=== PATIENT | female | born 1950 | race Caucasian/White ===

== ENCOUNTER 2020-11-13 22:19 | Inpatient (IN) ==
--- OUTSIDE RECORDS SUMMARY | 2020-11-13 22:23 | External Medical Summary | Continuity of Care Document ---
:1950 Author Name Nuris Clinton, Provider Address Unavailable Unavailable , Care Team Providers Name Role Phone Unavailable Unavailable Unavailable MANOLO HURST Unavailable Unavailable Unavailable Unavailable Unavailable Problems Arthritis (716.90) (M19.90) Hypertension (401.9) (I10) Leiomyoma of uterus (218.9) (D25.9) Hot flashes (782.62) (R23.2) Encounter for routine gynecological examination (V72.31) (Z0 1.419) Cyst of ovary (620.2) (N83.209) Allergies and Adverse Reactions Compazine TABS (Allergy) Reaction: Swell ing, Anaphylaxis, Difficulty Swallowing hydroCHLOROthiazide CAPS (Allergy) Reglan TABS (Allergy) Reaction: Tachycar sharath, Dizziness Medications Lisinopril TABS , M.D. Refills: 0 Fish Oil OIL , M.D. Refills: 0 Vitamin D CAPS , M.D. Refills: 0 CoQ-10 CAPS , M.D. Refills: 0 Vitamin E TABS , M.D. Refills: 0 Aspirin 81 MG TABS , M.D. Refills: 0 Simvastatin 20 MG Oral Tablet , M.D. Refills: 0 Turmeric Curcumin CAPS , M.D. Refills: 0 Metoprolol Tartrate TABS , M.D. Refills: 0 Biotin CAPS , M.D. Refills: 0 clonazePAM TABS , M.D. Refills: 0 Procedures History of Dilation And Curettage Status : Completed History of Tubal Ligation Status: Comple ana lilia History of Tonsillectomy With Adenoidectomy Status: Completed History of Oral Surgery Tooth Extraction Status: Completed History of Complete Colonoscopy Status: Completed History of Cholecystectomy Laparoscopic Status: Completed History of paraesophageal hiatal hernia repair Status: Completed Immunizations Immunizations not documented Family History Father Family history of myocardial infarction (V17.3) (Z82.49) Sta tus: Active Family history of (799.9) (R99) Status: Active Mother Family history of Leiomyoma (215.9) (D21.9) Status: Active Grandfather Family history of Colon cancer (153.9) (C18.9) Status: Activ e Social History - Smoking Status Never smoked tobacco Plan of Treatment Planned Observations Planned Goals not documented Results No Known Results Results not documented Encounters Appointment; Ivet Heaton M.D. 09-Jan-2019 13:45 Encounter Diagnosis: Problem not documented
--- OUTSIDE RECORDS SUMMARY | 2020-11-13 22:23 | External Medical Summary | Continuity of Care Document ---
:1950 Author Name Nuris Clinton, Provider Address Unavailable Unavailable , Care Team Providers Name Role Phone Unavailable Unavailable Unavailable MANOLO HURST Unavailable Unavailable Unavailable Unavailable Unavailable Problems Cyst of ovary (620.2) (N83.209) Encounter for routine gynecological examination (V72.31) (Z0 1.419) Hot flashes (782.62) (R23.2) Leiomyoma of uterus (218.9) (D25.9) Hypertension (401.9) (I10) Arthritis (716.90) (M19.90) Allergies and Adverse Reactions Compazine TABS (Allergy) Reaction: Swell ing, Anaphylaxis, Difficulty Swallowing hydroCHLOROthiazide CAPS (Allergy) Reglan TABS (Allergy) Reaction: Tachycar sharath, Dizziness Medications Lisinopril TABS , M.D. Refills: 0 Fish Oil OIL , M.D. Refills: 0 Vitamin D CAPS , M.D. Refills: 0 clonazePAM TABS , M.D. Refills: 0 Biotin CAPS , M.D. Refills: 0 Metoprolol Tartrate TABS , M.D. Refills: 0 Turmeric Curcumin CAPS , M.D. Refills: 0 Aspirin 81 MG TABS , M.D. Refills: 0 Vitamin E TABS , M.D. Refills: 0 Simvastatin 20 MG Oral Tablet , M.D. Refills: 0 CoQ-10 CAPS , M.D. Refills: 0 Procedures History of [...]
[2020-11-13] MEDS ORDERED: ACETAMINOPHEN 1,000 MG/100 ML VIAL IV STA (22:47)
[2020-11-13] MEDS ORDERED: SODIUM CHLORIDE 0.9% 1000ML 1,000 ML IV SCH (23:00)
--- NOTE | 2020-11-13 23:04 | Emergency Department Note ---
History of Present Illness General Chief complaint: Abnormal Labs/Diagnostic Testing Stated complaint: abnormal lab work Time Seen by Provider: 11/13/20 22:32 History of Present Illness This is a 70-year-old female presenting to the emergency department for evaluation of abnormal outpatient labs at the [facility] today. The patient had a routine follow-up with her primary care physician this afternoon, Dr. Gray. She has been feeling unwell for the past few months. She has had intermittent bronchitis-like symptoms and has been using her 's albuterol inhaler at night with some improvement of symptoms. The patient did have the initial Moderna COVID-19 vaccine about 2 weeks ago. A day or 2 after that she did develop a fever and went to an urgent care clinic where she was started on 10 days of Augmentin. She just completed the antibiotic course without significant improvement of symptoms. She does report some fatigue but no headache, neck pain, chest pain, chest tightness, shortness of breath, or abdominal pain otherwise. The patient is usually fairly healthy with hypertension, dyslipidemia, and history of SVT. Because of her fatigue outpatient labs were gathered, and the patient was contacted [facility] with critical labs. She does have an outpatient white blood cell count of greater than 92,000 with 86% blasts. She is not having significant pain at this time and rates her current discomfort a 1/10. Home Medications Medication Instructions Recorded Confirmed Type aspirin 81 mg PO DAILY 11/13/20 11/13/20 History calcium carbonate [Calcium 500] 500 mg PO BID 11/13/20 11/13/20 History cholecalciferol (vitamin D3) 50 mcg PO DAILY 11/13/20 11/13/20 History [Vitamin D3] coenzyme Q10 [CoQ-10] 100 mg PO DAILY 11/13/20 11/13/20 History diclofenac sodium [Voltaren] 2 g TOPICAL DIRECTED PRN 11/13/20 11/13/20 History doxycycline hyclate 100 mg PO BID 11/13/20 11/13/20 History fluticasone propion-salmeterol 1 inh INHALATION BID 11/13/20 11/13/20 History [Wixela Inhub] levalbuterol tartrate 1 puff INHALATION DIRECTED PRN 11/13/20 11/13/20 History lisinopril 20 mg PO BID 11/13/20 11/13/20 History metoprolol succinate 12.5 mg PO DAILY 11/13/20 11/13/20 History metronidazole 1 applic TOPICAL DIRECTED PRN 11/13/20 11/13/20 History omega-3 fatty acids-fish oil 1 cap PO BID 11/13/20 11/13/20 History [[place] 3 Fish Oil] simvastatin 20 mg PO QDD 11/13/20 11/13/20 History valacyclovir 1,000 mg PO BID 11/13/20 11/13/20 History zinc 50 mg PO DAILY 11/13/20 11/13/20 History Allergies Allergy/AdvReac Type Severity Reaction Status Date / Time prochlorperazine Allergy Severe MOUTH & Verified 11/13/20 23:01 [From Compazine] THROAT FEEL LIKE SWOLLEN hydrochlorothiazide Allergy Unknown TOLD BY MD Verified 11/13/20 23:01 NOT TO TAKE metoclopramide [From Reglan] AdvReac Intermediate INCREASES Verified 11/13/20 23:01 HEART RATE Past Med/Surg History Medical History (Updated 11/14/20 @ 05:52 by Travis Reed PA-C) Dyslipidemia Family history of heart attack Father at age 56. Father used Tobacco and ETOH. Family history of stroke Hypertension Paroxysmal SVT (supraventricular tachycardia) Postgastric surgery syndrome Reactive airway disease Surgical History (Updated 11/13/20 @ 23:10 by Travis Reed PA-C) Hx of cholecystectomy Hx of tonsillectomy S/P repair of paraesophageal hernia Social History Smoking Status: Never smoker Do You Dip or Chew Tobacco: No; Hx Alcohol Use: No Preferred Language: Algerian Communication Ability: Effective Cage/Vault Supervisor Required: No Beliefs That Will Affect Care: None Current Living Situation: Family Other Information That Helps Us Care for You: No Feels Safe at Home: Yes Safety Concerns: Feels Safe At This Time Assistive Devices: Contacts Review of Systems A total of 10 systems reviewed and were otherwise negative Physical Exam Vital Signs Vital Signs - 24 hr 11/13/20 22:28 11/13/20 23:10 11/13/20 23:12 Temperature 37.9 C H Temperature Source Temporal Artery Scan Pulse Rate 101 H Pulse Rate [Right Finger] 96 H Pulse Rate from SpO2 Sensor Respiratory Rate 16 26 H Respiratory Effort / Characteristics Non-Labored Spontaneous Non-Labored Spontaneous Respiratory Depth Normal Normal Respiratory Pattern Regular Regular Blood Pressure 178/94 H Blood Pressure [Right Arm] 155/81 H Blood Pressure Mean 122 Blood Pressure Mean [Right Arm] 105 Blood Pressure Position Sitting Blood Pressure Position [Right Arm] Lying Pulse Oximetry 98 96 96 Oxygen Delivery Method Room Air Room Air Room Air Sepsis Recent Fever Within 48 Hours Yes Sepsis New/Unexplained Change in Mental Status No Sepsis Action Taken by Nursing No Action Required 11/13/20 23:30 11/14/20 00:00 11/14/20 00:05 Temperature 37.2 C Temperature Source Oral Pulse Rate 94 H 95 H Pulse Rate [Right Finger] Pulse Rate from SpO2 Sensor 94 H 94 H Respiratory Rate 20 21 Respiratory Effort / Characteristics Respiratory Depth Respiratory Pattern Blood Pressure 151/74 H 139/80 Blood Pressure [Right Arm] Blood Pressure Mean 99 99 Blood Pressure Mean [Right Arm] Blood Pressure Position Blood Pressure Position [Right Arm] Pulse Oximetry 97 98 Oxygen Delivery Method Room Air Room Air Sepsis Recent Fever Within 48 Hours Sepsis New/Unexplained Change in Mental Status Sepsis Action Taken by Nursing VITALS: Vitals are noted on the nurse's note and reviewed by myself. Vital signs with low-grade fever and slight tachycardia. GENERAL: Well-developed, well-nourished, white female, who is in no acute distress and resting comfortably. Patient is cooperative with the examination. HEAD: Normocephalic atraumatic. NECK: Supple without nuchal rigidity. No lymphadenopathy. No thyromegaly. Cervical spine is nontender. HEART: Regular rate and rhythm without murmurs gallops or rubs. LUNGS: Clear to auscultation bilaterally without wheezes, rales or rhonchi. No retractions or accessory muscle use. ABDOMEN: Positive normal bowel sounds x 4. Soft, nontender, without masses or organomegaly. No guarding or rebound tenderness. MUSCULOSKELETAL: No muscle atrophy, erythema, or edema noted. Full range of motion in all extremities NEURO: Patient was alert and oriented to person place and time. CN II through XII grossly intact. Course Administered Medications Ceftriaxone Sodium 2,000 mg/ (Dextrose) 70 mls @ 100 mls/hr IV Q24H [facility]; Protocol Stop: 11/21/20 03:59 Last Infusion: 11/14/20 04:53 Dose: 0 mls/hr Documented by: [id number] Admin: 11/14/20 03:55 Dose: 100 mls/hr Documented by: [id number] Sodium Chloride (Nss 1000ml) 1,000 mls @ 80 mls/hr IV .[id number] MEET Stop: 12/14/20 03:00 Last Admin: 11/14/20 03:00 Dose: 80 mls/hr Documented by: [id number] Discontinued Medications Sodium Chloride (Nss 1000ml) 1,000 mls @ 999 mls/hr IV .[id number] MEET Stop: 11/14/20 00:00 Last Infusion: 11/14/20 00:42 Dose: 0 mls/hr Documented by: [id number] Admin: 11/13/20 23:13 Dose: 999 mls/hr Documented by: [id number] Acetaminophen (Ofirmev) 1,000 mg in 100 mls @ 400 mls/hr IV NOW STA Stop: 11/13/20 23:01 Last Infusion: 11/13/20 23:30 Dose: 0 mls/hr Documented by: [id number] Admin: 11/13/20 23:14 Dose: 400 mls/hr Documented by: [id number] Medical Decision Making Differential Diagnosis Differential includes Cancer, acute coronary syndrome, myocardial infarction, CVA, TIA, anemia, infection, pneumonia, UTI, pyelonephritis, poor nutrition, dehydration, electrolyte disturbance,hypoglycemia. Laboratory Data Result diagrams: 11/13/20 23:15 11/13/20 23:15 Lab Results 11/13/20 11/13/20 11/13/20 Range/Units 23:10 23:10 23:15 WBC 94.12 H* (4.8-10.8) K/uL RBC 3.20 L (4.2-5.4) M/uL Hgb 10.5 L (12.0-16.0) g/dL Hct 31.3 L (37-47) % MCV 97.8 (80-100) fL MCH 32.8 (25-34) pg MCHC 33.5 (32-36) g/dL RDW Std Deviation 57.2 H (36.4-46.3) fL RDW Coeff of Isabel 16.4 H (11.5-14.5) % Plt Count 34 L (130-400) K/uL MPV 9.9 (7.4-10.4) fL Reticulocyte % (Auto) 1.2 (0.5-2.0) % Reticulocyte # 0.04 (0.02-0.10) 10^6/uL Absolute Nucleated RBC 0.12 H (0-0) K/uL Nucleated RBC % (auto) 0.1 % Neutrophils % (Manual) 0.0 % Lymphocytes % (Manual) 2.4 % Monocytes % (Manual) 0.8 % Blast Cells % (Manual) 96.8 % Neutrophils # (Manual) 0.00 L (1.4-6.5) K/uL Total Absolute Neuts 0.00 L* (1.4-6.5) K/uL Lymphocytes # (Manual) 2.26 (1.2-3.4) K/uL Total Abs Lymphocytes 2.26 (1.2-3.4) K/uL Monocytes # (Manual) 0.75 H (0.11-0.59) K/uL Blast Cells # (Man) 91.11 H (0-0) K/uL RBC Morphology Unremarkable ESR (0-21) mm/hr PT (9.0-12.0) Seconds INR (0.9-1.1) APTT (21.0-31.0) Seconds PTT Ratio Sodium (136-145) mmol/L Potassium (3.5-5.1) mmol/L Chloride (98-107) mmol/L Carbon Dioxide (21-32) mmol/L Anion Gap (3-11) BUN (7-18) mg/dl Creatinine (0.6-1.2) mg/dl Est Cr Clr Drug Dosing ml/min Est GFR ( Amer) Est GFR (Non-Af Amer) BUN/Creatinine Ratio (10-20) Glucose (70-99) mg/dl Lactate (0.4-2.0) mmol/L Uric Acid (2.6-7.2) mg/dl Calcium (8.5-10.1) mg/dl Phosphorus (2.5-4.9) mg/dl Magnesium (1.8-2.4) mg/dl Total Bilirubin (0.2-1) mg/dl AST (15-37) U/L ALT (12-78) U/L Alkaline Phosphatase (45-117) U/L Troponin I (0-0.045) ng/ml C-Reactive Protein (0-0.29) mg/dl Total Protein (6.4-8.2) gm/dl Albumin (3.4-5.0) gm/dl Globulin (2.5-4.0) gm/dl Albumin/Globulin Ratio (0.9-2) Lipase (73-393) U/L Procalcitonin (0-0.5) ng/ml TSH (0.300-4.500) uIu/ml Specimen Hemolysis Urine Color Urine Appearance (Clear) Urine pH (4.5-7.5) Ur Specific [place] (1.000-1.030) Urine Protein (Negative) Urine Glucose (UA) (Negative) Urine Ketones (Negative) Urine Blood (Negative) Urine Nitrite (Negative) Urine Bilirubin (Negative) Urine Urobilinogen (Negative) Ur Leukocyte Esterase (Negative) Urine WBC (Auto) (0-5) /hpf Urine RBC (Auto) (0-4) /hpf U Hyaline Cast (Auto) (0-5) /lpf U Epithel Cells (Auto) (0-5) /lpf Urine Bacteria (Auto) (Negative) COVID-19 Eval Order Covid19 IDNow [facility] SARS-CoV-2, RNA, NAAT NEGATIVE (NEGATIVE) Blood Type Antibody Screen 11/13/20 11/13/20 11/13/20 Range/Units 23:15 23:15 23:15 WBC (4.8-10.8) K/uL RBC (4.2-5.4) M/uL Hgb (12.0-16.0) g/dL Hct (37-47) % MCV (80-100) fL MCH (25-34) pg MCHC (32-36) g/dL RDW Std Deviation (36.4-46.3) fL RDW Coeff of Isabel (11.5-14.5) % Plt Count (130-400) K/uL MPV (7.4-10.4) fL Reticulocyte % (Auto) (0.5-2.0) % Reticulocyte # (0.02-0.10) 10^6/uL Absolute Nucleated RBC (0-0) K/uL Nucleated RBC % (auto) % Neutrophils % (Manual) % Lymphocytes % (Manual) % Monocytes % (Manual) % Blast Cells % (Manual) % Neutrophils # (Manual) (1.4-6.5) K/uL Total Absolute Neuts (1.4-6.5) K/uL Lymphocytes # (Manual) (1.2-3.4) K/uL Total Abs Lymphocytes (1.2-3.4) K/uL Monocytes # (Manual) (0.11-0.59) K/uL Blast Cells # (Man) (0-0) K/uL RBC Morphology ESR (0-21) mm/hr PT 10.9 (9.0-12.0) Seconds INR 1.1 (0.9-1.1) APTT 23.9 (21.0-31.0) Seconds PTT Ratio 0.9 Sodium 145 (136-145) mmol/L Potassium 3.9 (3.5-5.1) mmol/L Chloride 113 H (98-107) mmol/L Carbon Dioxide 25 (21-32) mmol/L Anion Gap 7.0 (3-11) BUN 21 H (7-18) mg/dl Creatinine 1.49 H (0.6-1.2) mg/dl Est Cr Clr Drug Dosing 37.3 ml/min Est GFR ( Amer) 41.1 Est GFR (Non-Af Amer) 35.5 BUN/Creatinine Ratio 14.2 (10-20) Glucose 132 H (70-99) mg/dl Lactate 0.8 (0.4-2.0) mmol/L Uric Acid 6.7 (2.6-7.2) mg/dl Calcium 8.5 (8.5-10.1) mg/dl Phosphorus 2.9 (2.5-4.9) mg/dl Magnesium 2.2 (1.8-2.4) mg/dl Total Bilirubin 0.3 (0.2-1) mg/dl AST 20 (15-37) U/L ALT 27 (12-78) U/L Alkaline Phosphatase 69 (45-117) U/L Troponin I < 0.015 (0-0.045) ng/ml C-Reactive Protein 2.18 H (0-0.29) mg/dl Total Protein 7.2 (6.4-8.2) gm/dl Albumin 3.7 (3.4-5.0) gm/dl Globulin 3.5 (2.5-4.0) gm/dl Albumin/Globulin Ratio 1.1 (0.9-2) Lipase 75 (73-393) U/L Procalcitonin (0-0.5) ng/ml TSH 2.010 (0.300-4.500) uIu/ml Specimen Hemolysis Urine Color Urine Appearance (Clear) Urine pH (4.5-7.5) Ur Specific [place] (1.000-1.030) Urine Protein (Negative) Urine Glucose (UA) (Negative) Urine Ketones (Negative) Urine Blood (Negative) Urine Nitrite (Negative) Urine Bilirubin (Negative) Urine Urobilinogen (Negative) Ur Leukocyte Esterase (Negative) Urine WBC (Auto) (0-5) /hpf Urine RBC (Auto) (0-4) /hpf U Hyaline Cast (Auto) (0-5) /lpf U Epithel Cells (Auto) (0-5) /lpf Urine Bacteria (Auto) (Negative) COVID-19 Eval Order SARS-CoV-2, RNA, NAAT (NEGATIVE) Blood Type Antibody Screen 11/13/20 11/13/20 11/13/20 Range/Units 23:15 23:15 23:15 WBC (4.8-10.8) K/uL RBC (4.2-5.4) M/uL Hgb (12.0-16.0) g/dL Hct (37-47) % MCV (80-100) fL MCH (25-34) pg MCHC (32-36) g/dL RDW Std Deviation (36.4-46.3) fL RDW Coeff of Isabel (11.5-14.5) % Plt Count (130-400) K/uL MPV (7.4-10.4) fL Reticulocyte % (Auto) (0.5-2.0) % Reticulocyte # (0.02-0.10) 10^6/uL Absolute Nucleated RBC (0-0) K/uL Nucleated RBC % (auto) % Neutrophils % (Manual) % Lymphocytes % (Manual) % Monocytes % (Manual) % Blast Cells % (Manual) % Neutrophils # (Manual) (1.4-6.5) K/uL Total Absolute Neuts (1.4-6.5) K/uL Lymphocytes # (Manual) (1.2-3.4) K/uL Total Abs Lymphocytes (1.2-3.4) K/uL Monocytes # (Manual) (0.11-0.59) K/uL Blast Cells # (Man) (0-0) K/uL RBC Morphology ESR 11 (0-21) mm/hr PT (9.0-12.0) Seconds INR (0.9-1.1) APTT (21.0-31.0) Seconds PTT Ratio Sodium (136-145) mmol/L Potassium (3.5-5.1) mmol/L Chloride (98-107) mmol/L Carbon Dioxide (21-32) mmol/L Anion Gap (3-11) BUN (7-18) mg/dl Creatinine (0.6-1.2) mg/dl Est Cr Clr Drug Dosing ml/min Est GFR ( Amer) Est GFR (Non-Af Amer) BUN/Creatinine Ratio (10-20) Glucose (70-99) mg/dl Lactate (0.4-2.0) mmol/L Uric Acid (2.6-7.2) mg/dl Calcium (8.5-10.1) mg/dl Phosphorus (2.5-4.9) mg/dl Magnesium (1.8-2.4) mg/dl Total Bilirubin (0.2-1) mg/dl AST (15-37) U/L ALT (12-78) U/L Alkaline Phosphatase (45-117) U/L Troponin I (0-0.045) ng/ml C-Reactive Protein (0-0.29) mg/dl Total Protein (6.4-8.2) gm/dl Albumin (3.4-5.0) gm/dl Globulin (2.5-4.0) gm/dl Albumin/Globulin Ratio (0.9-2) Lipase (73-393) U/L Procalcitonin 0.08 (0-0.5) ng/ml TSH (0.300-4.500) uIu/ml Specimen Hemolysis Urine Color Urine Appearance (Clear) Urine pH (4.5-7.5) Ur Specific [place] (1.000-1.030) Urine Protein (Negative) Urine Glucose (UA) (Negative) Urine Ketones (Negative) Urine Blood (Negative) Urine Nitrite (Negative) Urine Bilirubin (Negative) Urine Urobilinogen (Negative) Ur Leukocyte Esterase (Negative) Urine WBC (Auto) (0-5) /hpf Urine RBC (Auto) (0-4) /hpf U Hyaline Cast (Auto) (0-5) /lpf U Epithel Cells (Auto) (0-5) /lpf Urine Bacteria (Auto) (Negative) COVID-19 Eval Order SARS-CoV-2, RNA, NAAT (NEGATIVE) Blood Type O Negative Antibody Screen NEGATIVE 11/13/20 11/14/20 Range/Units 23:15 00:06 WBC (4.8-10.8) K/uL RBC (4.2-5.4) M/uL Hgb (12.0-16.0) g/dL Hct (37-47) % MCV (80-100) fL MCH (25-34) pg MCHC (32-36) g/dL RDW Std Deviation (36.4-46.3) fL RDW Coeff of Isabel (11.5-14.5) % Plt Count (130-400) K/uL MPV (7.4-10.4) fL Reticulocyte % (Auto) Cancelled (0.5-2.0) % Reticulocyte # Cancelled (0.02-0.10) 10^6/uL Absolute Nucleated RBC (0-0) K/uL Nucleated RBC % (auto) % Neutrophils % (Manual) % Lymphocytes % (Manual) % Monocytes % (Manual) % Blast Cells % (Manual) % Neutrophils # (Manual) (1.4-6.5) K/uL Total Absolute Neuts (1.4-6.5) K/uL Lymphocytes # (Manual) (1.2-3.4) K/uL Total Abs Lymphocytes (1.2-3.4) K/uL Monocytes # (Manual) (0.11-0.59) K/uL Blast Cells # (Man) (0-0) K/uL RBC Morphology ESR (0-21) mm/hr PT (9.0-12.0) Seconds INR (0.9-1.1) APTT (21.0-31.0) Seconds PTT Ratio Sodium (136-145) mmol/L Potassium (3.5-5.1) mmol/L Chloride (98-107) mmol/L Carbon Dioxide (21-32) mmol/L Anion Gap (3-11) BUN (7-18) mg/dl Creatinine (0.6-1.2) mg/dl Est Cr Clr Drug Dosing ml/min Est GFR ( Amer) Est GFR (Non-Af Amer) BUN/Creatinine Ratio (10-20) Glucose (70-99) mg/dl Lactate (0.4-2.0) mmol/L Uric Acid (2.6-7.2) mg/dl Calcium (8.5-10.1) mg/dl Phosphorus (2.5-4.9) mg/dl Magnesium (1.8-2.4) mg/dl Total Bilirubin (0.2-1) mg/dl AST (15-37) U/L ALT (12-78) U/L Alkaline Phosphatase (45-117) U/L Troponin I (0-0.045) ng/ml C-Reactive Protein (0-0.29) mg/dl Total Protein (6.4-8.2) gm/dl Albumin (3.4-5.0) gm/dl Globulin (2.5-4.0) gm/dl Albumin/Globulin Ratio (0.9-2) Lipase (73-393) U/L Procalcitonin (0-0.5) ng/ml TSH (0.300-4.500) uIu/ml Specimen Hemolysis Urine Color Yellow Urine Appearance Clear (Clear) Urine pH 6.5 (4.5-7.5) Ur Specific [place] 1.014 (1.000-1.030) Urine Protein Negative (Negative) Urine Glucose (UA) Negative (Negative) Urine Ketones Negative (Negative) Urine Blood 1+ H (Negative) Urine Nitrite Negative (Negative) Urine Bilirubin Negative (Negative) Urine Urobilinogen Negative (Negative) Ur Leukocyte Esterase Negative (Negative) Urine WBC (Auto) 0 (0-5) /hpf Urine RBC (Auto) 0-4 (0-4) /hpf U Hyaline Cast (Auto) 0 (0-5) /lpf U Epithel Cells (Auto) 0-5 (0-5) /lpf Urine Bacteria (Auto) Negative (Negative) COVID-19 Eval Order SARS-CoV-2, RNA, NAAT (NEGATIVE) Blood Type Antibody Screen ECG Data Attestation: I personally reviewed and interpreted this ECG as follows: Additional Comments: Normal sinus rhythm @[address] elevation Normal ECG No previous ECGs available MDM Narrative Physical exam and history were performed. Nursing notes, EMR, and Medication List were personally reviewed. Patient appears to have abnormal outpatient lab testing. I did review the patient's [facility] medical record with the help of case management, and she did have an elevated white blood cell count of greater than 90,000. The concern is for AML, which seems a likely diagnosis. The patient was placed on contact pr ecautions. IV access was established and labs were obtained. Blood cultures and lactic acid were also performed. Urine was collected. EKG is without acute ST elevation. Chest x-ray was performed and reviewed by myself showing no obvious acute process. Radiology read is pending. The patient was hydrated with normal saline and given IV Tylenol. An order was placed for continuous cardiac monitoring. The monitor shows a rate of 89 with normal sinus rhythm. The patient's blood work is as above and was reviewed. She does have an elevated white blood cell count of 94,000 with primarily blast cells. Her absolute neutrophil count is currently 0. She is slightly anemic at 10.5. Lactic is negative. BUN is 21 and creatinine is 1.49. Urine is nondiagnostic. Covid test was performed and negative. She is blood type O negative. Due to the extent of the patient's symptoms I did involve the [facility] hospitalist very early in the patient's course. Additional specialty labs such as peripheral smear are pending at this time. The patient does not appear in crisis, however there is concern with her blood work. The patient will need to stay in the hospital for further management. Please see the [facility] team dictation for further patient course, plan, and disposition. The chart was completed utilizing [employer] Speech Voice Recognition Software. Grammatical errors, random word insertions, pronoun errors, and incomplete sentences are an occasional consequence of this system due to software limitations, ambient noise, and hardware issues. Any formal questions or concerns about the content, text, or information contained within the body of this dictation should be directly addressed to the provider for clarification. . Impression & Plan AML (acute myeloblastic leukemia) Discharge Plan Visit Data Chief Complaint: Abnormal Labs/Diagnostic Testing Stated Complaint: abnormal lab work ED Provider: [facility] Midlevel Provider: Travis Reed Discharge Problem: AML (acute myeloblastic leukemia) Patient Disposition: Admitted As Inpatient Discharge Instructions Interventions: ED Discharge Assessment Last Done: 11/14/20 02:40 Discharge Problem: AML (acute myeloblastic leukemia) Qualifiers: Leukemia Active/Remission status: without remission Qualified Code(s): C92.00 - Acute myeloblastic leukemia, not having achieved remission
[2020-11-13 23:37] LABS: INR 1.1 (0.9-1.1); Partial Thromboplastin Ratio 0.9; Partial Thromboplastin Time 23.9 Seconds (21.0-31.0); Prothrombin Time 10.9 Seconds (9.0-12.0)
[2020-11-13 23:50] LABS: Alanine Aminotransferase 27 U/L (12-78); Albumin Level 3.7 gm/dl (3.4-5.0); Aspartate Aminotransferase 20 U/L (15-37); BUN Creatinine Ratio 14.2 (10-20); Blood Urea Nitrogen 21 mg/dl (7-18); Calcium 8.5 mg/dl (8.5-10.1); Carbon Dioxide 25 mmol/L (21-32); Chloride 113 mmol/L (98-107); Creatinine Clr Calc Pharmacy 37.3 ml/min; Est GFR (African American) 41.1; Est GFR (Non-African American) 35.5; Glucose 132 mg/dl (70-99); Lipase 75 U/L (73-393); Magnesium 2.2 mg/dl (1.8-2.4); Potassium 3.9 mmol/L (3.5-5.1); Sodium 145 mmol/L (136-145)
[2020-11-13 23:56] LABS: Albumin Globulin Ratio 1.1 (0.9-2); Alkaline Phosphatase 69 U/L (45-117); Bilirubin,Total 0.3 mg/dl (0.2-1); C Reactive Protein 2.18 mg/dl (0-0.29); Globulin 3.5 gm/dl (2.5-4.0); Phosphorus 2.9 mg/dl (2.5-4.9); Total Protein 7.2 gm/dl (6.4-8.2); Troponin I < 0.015 ng/ml (0-0.045); Uric Acid 6.7 mg/dl (2.6-7.2)
[2020-11-14 00:30] LABS: Appearance Urine Clear (Clear); Bacteria Urine Automated Negative (Negative); Bilirubin Urine Negative (Negative); Blood Urine 1+ (Negative); Cast Urine Automated 0 /lpf (0-5); Color Urine Yellow; Epithelial Cell Urine Auto 0-5 /lpf (0-5); Glucose Urine UA Negative (Negative); Ketones Urine Negative (Negative); Leukocyte Esterase Urine Negative (Negative); Nitrite Urine Negative (Negative); Protein Urine Negative (Negative); RBC Urine Automated 0-4 /hpf (0-4); Specific Gravity Urine 1.014 (1.000-1.030); Urobilinogen Urine Negative (Negative); WBC Urine Automated 0 /hpf (0-5); pH Urine 6.5 (4.5-7.5)
[2020-11-14 00:32] LABS: Hematocrit (blood only) 31.3 % (37-47); Hemoglobin 10.5 g/dL (12.0-16.0); Mean Corpuscular Hemoglobin 32.8 pg (25-34); Mean Corpuscular Hgb Conc 33.5 g/dL (32-36); Mean Corpuscular Volume 97.8 fL (80-100); Mean Platelet Volume 9.9 fL (7.4-10.4); Nucleated RBC # (auto) 0.12 K/uL (0-0); Nucleated RBC % (auto) 0.1 %; Platelet Count 34 K/uL (130-400); RDW Coefficient of Variation 16.4 % (11.5-14.5); RDW Standard Deviation 57.2 fL (36.4-46.3); White Blood Count 94.12 K/uL (4.8-10.8)
[2020-11-14 00:34] LABS: RBC Morphology Unremarkable
[2020-11-14 00:37] LABS: ALC (manual) 2.26 K/uL (1.2-3.4); Blast # (manual) 91.11 K/uL (0-0); Blast Cells % (manual) 96.8 %; Lymphocytes # (manual) 2.26 K/uL (1.2-3.4); Lymphocytes % (manual) 2.4 %; Monocytes # (manual) 0.75 K/uL (0.11-0.59); Monocytes % (manual) 0.8 %; Reticulocyte % 1.2 % (0.5-2.0); Reticulocytes # 0.04 10^6/uL (0.02-0.10)
[2020-11-14] MEDS: SODIUM CHLORIDE 0.9% 1000ML 1,000 ML IV SCH ×2 (03:00→15:50)
[2020-11-14] MEDS ORDERED: LEVALBUTEROL TARTRATE 15 GM HFA.AER.AD INH PRN (03:01)
[2020-11-14] MEDS ORDERED: ACETAMINOPHEN 325 MG TAB PO PRN (03:01)
[2020-11-14] MEDS ORDERED: METRONIDAZOLE 1% TOP PRN (03:01)
[2020-11-14] MEDS ORDERED: NITROGLYCERIN SL 0.4 MG/TAB TAB SL PRN (03:01)
[2020-11-14] MEDS ORDERED: DICLOFENAC SOD 1% GEL 100 GM TUBE EXT PRN (03:01)
[2020-11-14] MEDS ORDERED: cefTRIAXone SODIUM 2,000 MG in DEXTROSE 5% 50 ML IV SCH (04:00)
--- NOTE | 2020-11-14 04:24 | History and Physical Report ---
DATE OF ADMISSION: 11/14/2020 CHIEF COMPLAINT: Abnormal labs. HISTORY OF PRESENT ILLNESS: This is a 70-year-old female with past medical history significant for hyperlipidemia, thyroid nodule, reactive airway disease that is not asthma, paroxysmal SVT, hypertension, post-gastric surgery syndrome. Was brought in because of abnormal labs. The patient is having fatigue for last 1 month, she is having cough for last 2 months. She has no fevers, no loss of appetite. She is having some night sweats but that is going on for years, that is nothing new. She has had Moderna COVID shot about 2 weeks ago. She was started on doxycycline today as outpatient because of cough and outpatient labs done today showed elevated white count and thrombocytopenia, so she was advised to come to the ER. In the ER, she had mild spike of temperature, but that is resolved now. Denies any headache, no blurred visions, no earache, no runny nose, no sore throat. She has sore gums for last few days. No dysphagia. No chest pain. She has shortness of breath on exertion, but resting no shortness of breath. No nausea, no abdominal pain, no diarrhea or constipation, no blood in stools or black stools. No hematuria or burning micturition. No swelling in the legs, no rash. Currently resting comfortably and hemodynamically stable. ALLERGIES: COMPAZINE, HYDROCHLOROTHIAZIDE, REGLAN. PAST MEDICAL HISTORY: As mentioned above. PAST SURGICAL HISTORY: Laparoscopic cholecystectomy, ligation of the oviducts, paraesophageal hernia repair, tonsillectomy. MEDICATIONS: The patient is on doxycycline 100 mg p.o. b.i.d., aspirin 81 mg p.o. daily, calcium 500 mg p.o. b.i.d., vitamin D 50 mcg p.o. daily, Coenzyme 100 mg p.o. daily, Voltaren 2 grams topically p.r.n., fluticasone/salmeterol one inhalation b.i.d., levalbuterol 1 puff inhalation as directed, lisinopril 20 mg p.o. b.i.d., metoprolol succinate 12.5 mg p.o. daily, metronidazole topical p.r.n., [place] 3 fish oil 1 capsule p.o. b.i.d., simvastatin 20 mg p.o. daily, valacyclovir 1 gram p.o. b.i.d., zinc 50 mg p.o. daily. FAMILY HISTORY: Significant for maternal grandfather had colon cancer, father had heart attack at age of 56, mother had stroke. SOCIAL HISTORY: . No smoking, no alcohol, no drug use. REVIEW OF SYSTEMS: As per HPI. Rest of the review of systems negative. PHYSICAL EXAMINATION: GENERAL: The patient is of moderate build, not in acute distress. VITAL SIGNS: T-max 37.9, pulse 90, respiratory rate 24, blood pressure 138/68, oxygen 96% on room air. HEENT: Pupils equal, round, and reactive to light. Oral mucosa, some whitish lesions in the gums. NECK: No JVD, no neck masses seen. CARDIOVASCULAR: S1, S2 heard. Regular rate and rhythm, no murmur, no gallop. RESPIRATORY SYSTEM: Normal AP diameter. No accessory muscle use. No wheezing, no crackles. ABDOMEN: Soft, bowel sounds present, nontender. No distention. CENTRAL NERVOUS SYSTEM: Cranial nerves II-XII grossly intact, nonfocal. EXTREMITIES: No edema, no erythema. LABORATORY DATA: WBC 94.12, hemoglobin 10.5, hematocrit 31.3, platelets 34. PT 10.9, INR 1.1, APTT 23.9. ESR 11. Sodium 145, potassium 3.9, chloride 113, CO2 of 25, BUN 21, creatinine 1.49, serum glucose 132, lactate 0.8, uric acid 6.7, calcium 8.5, phosphorus 2.9, magnesium 2.2, total bilirubin 0.3, AST 20, ALT 27, alkaline phosphatase 69. Troponin I of 0.019. C-reactive protein 2.18, lipase 75. Procalcitonin 0.08. TSH 2.012. Urinalysis negative. SARS-CoV-2 negative. IMAGING DATA: Chest x-ray, no acute findings. EKG: Normal sinus rhythm at rate of 94, no acute ST changes seen. ASSESSMENT AND PLAN: This is a 70-year-old female who presents with abnormal labs. 1. 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 We will keep her n.p.o., gentle fluids. Consult hematology/oncology for further recommendations and closely monitor in the [employer] tele. 2. Cough, going on for last 2 months. mild spike in the ER, was started on doxycycline. Will continue doxycycline, also start on Rocephin. We will monitor the response. 3. Thrush: Will do nystatin swish and swallow. 4. History of reactive airway disease, not asthma: Will continue her home inhalers. 5. Hypertension: Continue lisinopril and Toprol-XL. Will monitor the blood pressure. 6. Hyperlipidemia: Continue statin. 7. Deep venous thrombosis prophylaxis: Sequential compression devices for now. 8. Disposition: Closely monitor in the [employer] tele. Level 1 full code. To be determined. MTDD
--- NOTE | 2020-11-14 07:55 | XRay Report ---
XR chest 1V portable CLINICAL HISTORY: acute myeloid leukemia COMPARISON STUDY: No previous studies for comparison. FINDINGS: The heart is borderline enlarged. There is mild elevation of interstitium. This is a findin g of uncertain chronicity. There is no lobar consolidation. There is minor left basilar atelectasis. There are no significant pleural effusions.[ IMPRESSION: 1. Mild elevation of the interstitium. This could represent mild pulmonary vascular congestion, and i nterstitial inflammatory process, or represent chronic change. ACT 112: Negative or not required by law. Electronically signed by: Felipe Covarrubias M.D. 11/14/2020 7:53 AM
[2020-11-14] MEDS ORDERED: ZINC SULFATE 220 MG CAPSULE PO SCH (08:00)
[2020-11-14 08:20] LABS: Alanine Aminotransferase 24 U/L (12-78); Albumin Level 3.4 gm/dl (3.4-5.0); Alkaline Phosphatase 67 U/L (45-117); Aspartate Aminotransferase 15 U/L (15-37); BUN Creatinine Ratio 14.3 (10-20); Bilirubin Direct < 0.1 mg/dl (0-0.2); Bilirubin,Total 0.4 mg/dl (0.2-1); Blood Urea Nitrogen 14 mg/dl (7-18); Calcium 9.1 mg/dl (8.5-10.1); Carbon Dioxide 23 mmol/L (21-32); Chloride 115 mmol/L (98-107); Creatinine Clr Calc Pharmacy 56.5 ml/min; Est GFR (African American) 68.2; Est GFR (Non-African American) 58.9; Glucose 125 mg/dl (70-99); Magnesium 2.1 mg/dl (1.8-2.4); Potassium 3.7 mmol/L (3.5-5.1); Sodium 144 mmol/L (136-145); Total Protein 6.7 gm/dl (6.4-8.2)
[2020-11-14 08:25] LABS: Hematocrit (blood only) 31.6 % (37-47); Hemoglobin 10.4 g/dL (12.0-16.0); Mean Corpuscular Hgb Conc 32.9 g/dL (32-36); Mean Corpuscular Volume 97.2 fL (80-100); Mean Platelet Volume 9.4 fL (7.4-10.4); Nucleated RBC # (auto) 0.18 K/uL (0-0); Nucleated RBC % (auto) 0.2 %; RDW Coefficient of Variation 16.3 % (11.5-14.5); RDW Standard Deviation 56.9 fL (36.4-46.3); Red Blood Count 3.25 M/uL (4.2-5.4)
[2020-11-14] MEDS: ONDANSETRON INJ 2 MG/ML 2 ML VIAL IV PRN ×2 (08:27→15:49)
[2020-11-14 08:33] LABS: Platelet Count 23 K/uL (130-400)
[2020-11-14 08:36] LABS: Platelet Estimate Decreased (Normal)
[2020-11-14 08:38] LABS: ALC (manual) 1.96 K/uL (1.2-3.4); Blast # (manual) 91.34 K/uL (0-0); Blast Cells % (manual) 97.9 %; Lymphocytes # (manual) 1.96 K/uL (1.2-3.4); Lymphocytes % (manual) 2.1 %
[2020-11-14] MEDS ORDERED: valACYclovir HCL 500 MG TABLET PO SCH (09:00)
[2020-11-14] MEDS ORDERED: FLUTICASONE/VILANTEROL 100/25MCG 14 PUFFS/INHALER INH SCH (09:00)
[2020-11-14] MEDS ORDERED: CHOLECALCIFEROL 1,000 UNITS 25 MCG TAB PO SCH (09:00)
[2020-11-14] MEDS ORDERED: DOXYCYCLINE HYCLATE 100 MG CAP PO SCH (09:00)
[2020-11-14] MEDS ORDERED: METOPROLOL SUCC 25MG EXT REL TAB PO SCH (09:00)
[2020-11-14] MEDS ORDERED: lisinopril 20 MG TAB PO SCH (09:00)
[2020-11-14] MEDS: NYSTATIN SUSP 500,000 U/5 ML UDC PO SCH ×3 (09:53→17:01)
--- NOTE | 2020-11-14 12:30 | Communication Note ---
Date of Service: November 14, 2020 pt admitted with fatigue , not feeling well Lab shows marked leukocytosis with blast , got update from pathologist this AM -it appears pt has AML , high likelihood for blast crisis recommends transfer to Tertiary care Sent Message to Jorge Pitts /Onc Dr You -consulted on this case . if [facility] On[facility] suggests transfer as well will call [facility] , Nancy ordered for diet Family will be updated once input from [facility] onc available . Elida Kahn MD
--- NOTE | 2020-11-14 16:22 | Communication Note ---
Date of Service: November 14, 2020 Pt admitted yesterday with 3 weeks hx of weakness, fatigue was seen by Primary care physician Clinic lab shows marked leukocytosis , thrombocytopenia pt was sent to [facility] ER for evaluation Lab shows : Leukocytosis > 90K with prominent blast cells Platelet count 34 k no bleeding complication peripheral blood smear was sent , [facility] Onc Dr You was consulted received call from Pathologist : peripheral smear concern for Acute Myeloid Leukemia , pt will need to be transferred to Tertiary care center for Diagnosis and treatment Reached out to Heme /Onc Dr You -recommends tx to [facility] , Transfer center called, case d/W environmental conservation professor Shooting Gallery Operator Dr Bret Messer accepts pt to be transferred , bed availability confirmed by [facility] transfer center pt remains hemodynamically stable , no chest pain , no SOB , no headache or blurred vision no evidence of bleeding , no fever or chills pt is being transferred to [facility] via ground ACLS 1 gm of PO Hydroxyura ordered prior to transfer -per Heme /Onc recommendation
[2020-11-14] MEDS ORDERED: HYDROXYUREA 500 MG CAP PO ONE (16:45)
--- NOTE | 2020-11-14 17:11 | Discharge Summary ---
Date of Service November 14, 2020 Admission HPI Per Admitting Provider DICTATED BY: Cipriano Dorado MD DATE OF ADMISSION: 11/14/2020 CHIEF COMPLAINT: Abnormal labs. HISTORY OF PRESENT ILLNESS: This is a 70-year-old female with past medical history significant for hyperlipidemia, thyroid nodule, reactive airway disease that is not asthma, paroxysmal SVT, hypertension, post-gastric surgery syndrome. Was brought in because of abnormal labs. The patient is having fatigue for last 1 month, she is having cough for last 2 months. She has no fevers, no loss of appetite. She is having some night sweats but that is going on for years, that is nothing new. She has had Moderna COVID shot about 2 weeks ago. She was started on doxycycline today as outpatient because of cough and outpatient labs done today showed elevated white count and thrombocytopenia, so she was advised to come to the ER. In the ER, she had mild spike of temperature, but that is resolved now. Denies any headache, no blurred visions, no earache, no runny nose, no sore throat. She has sore gums for last few days. No dysphagia. No chest pain. She has shortness of breath on exertion, but resting no shortness of breath. No nausea, no abdominal pain, no diarrhea or constipation, no blood in stools or black stools. No hematuria or burning micturition. No swelling in the legs, no rash. Currently resting comfortably and hemodynamically stable Principal Diagnosis Acute Myeloid Leukemia Thrombocytopenia Discharge Exam Constitutional WD/WN, vitals as above Eyes + anicteric sclerae ENMT external ear and nose normal, oropharynx normal Neck trachea midline, no thyromegaly Respiratory normal respiratory effort, lungs clear to auscultation Cardiovascular RRR, no murmur, no edema Gastrointestinal (Abdomen) Percussion/Palpation: abdomen soft; abdomen nontender Musculoskeletal no cyanosis or clubbing, extremities motor strength 5/5 Skin no rashes, warm and dry Neurologic PERRL, EOMI, accommodation nl, no face palsy, no dysarthria Psychiatric A+Ox3, euthymic affect Discharge Data Allergies Allergy/AdvReac Type Severity Reaction Status Date / Time prochlorperazine Allergy Severe MOUTH & Verified 11/13/20 23:01 [From Compazine] THROAT FEEL LIKE SWOLLEN hydrochlorothiazide Allergy Unknown TOLD BY MD Verified 11/13/20 23:01 NOT TO TAKE metoclopramide [From Reglan] AdvReac Intermediate INCREASES Verified 11/13/20 23:01 HEART RATE Consultations 11/13/20 22:53 ED Decision to Admit Stat 11/14/20 03:01 Consult Case Management - Discharge Planning Routine 11/14/20 08:00 Consult Hematology Routine 11/14/20 16:15 Burn CD for patient Routine Hospital Course (1) AML (acute myeloblastic leukemia): Pt admitted with 3 weeks hx of weakness, fatigue was seen by Primary care physician Clinic lab shows marked leukocytosis , thrombocytopenia pt was sent to [facility] ER for evaluation Lab shows : Leukocytosis > 90K with prominent blast cells Platelet count 34 k no bleeding complication peripheral blood smear was sent , [facility] Onc Dr You was consulted received call from Pathologist : peripheral smear concern for Acute Myeloid Leukemia , pt will need to be transferred to Tertiary care center for Diagnosis and treatment Reached out to Heme /Onc Dr You -recommends tx to [facility] , Transfer center called, case d/W data center solutions architect Supervisor [employer] Dr Bret Messer accepts pt to be transferred , bed availability confirmed by [facility] transfer center pt remains hemodynamically stable , no chest pain , no SOB , no headache or blurred vision no evidence of bleeding , no fever or chills pt is being transferred to [facility] via ground ACLS 1 gm of PO Hydroxyura ordered prior to transfer -per Heme /Onc recommendation Total Time Total Time Spent Total Time Spent (In Minutes): 35 mins Total Time Includes: Examination of the Patient, Discharge Planning and Medication Reconciliation Discharge Plan Discharge Items Patient Disposition: Transfer Acute Care Hospital Reason For Visit: ABNORMAL LABS Discharge Diagnosis: Acute Myeloid Leukemia Thrombocytopenia Activity: Resume your previous activity Non-emergency contact: Primary Care Provider Call non-emergency contact if: you have any medication questions Follow-up/Referrals: Zeferino Gray MD [Primary Care Provider] - Diet: Regular Addtl Attending Provider Instructions: Patient is being transferred to [facility] Pending Studies at Discharge: No Stand-Alone Forms: My [id number] labs Skilled Items Patient informed of condition?: Yes DNR: No Discharge Level of Care: Other Communicable Disease: No Discharge Prognosis: Stable Lines: None Urinary Catheter: No Medications and DC Order Prescriptions: Continued fluticasone propion-salmeterol [Wixela Inhub] 250-50 mcg/dose blister with device 1 inh INHALATION BID RF: 0 lisinopril 20 mg tablet 20 mg PO BID RF: 0 calcium carbonate [Calcium 500] 500 mg calcium (1,250 mg) Tablet 500 mg PO BID RF: 0 simvastatin 20 mg tablet 20 mg PO QDD RF: 0 zinc 50 mg Tablet 50 mg PO DAILY RF: 0 metoprolol succinate 25 mg Tablet Extended Release 24 Hr 12.5 mg PO DAILY RF: 0 coenzyme Q10 [CoQ-10] 100 mg Capsule 100 mg PO DAILY RF: 0 levalbuterol tartrate 45 mcg/actuation HFA aerosol inhaler 1 puff INHALATION DIRECTED PRN (Reason: Shortness Of Breath) RF: 0 metronidazole 1 % gel 1 applic TOPICAL DIRECTED PRN (Reason: ROSACEA) RF: 0 cholecalciferol (vitamin D3) [Vitamin D3] 50 mcg (2,000 unit) Capsule 50 mcg PO DAILY RF: 0 Discontinued doxycycline hyclate 100 mg capsule 100 mg PO BID RF: 0 valacyclovir 1 gram tablet 1,000 mg PO BID RF: 0 aspirin 81 mg Tablet,Delayed Release (Dr/Ec) 81 mg PO DAILY RF: 0 diclofenac sodium [Voltaren] 1 % Gel 2 g TOPICAL DIRECTED PRN (Reason: Pain) RF: 0 [place] 3 Fish Oil 684-1,200 mg Capsule,Delayed Release(Dr/Ec) 1 cap PO BID RF: 0 Discharge Orders: Discharge Order (Routine); Ordered 11/14/20 Ordered By: Elida Kahn Admission Data Admit Date/Time: 11/14/20 00:30 Attending Provider: Elida Kahn Admit Provider: Cipriano Dorado Primary Care Provider: Zeferino Gray Other Providers: Cipriano Dorado ; Lani You ; Nicholas,Home [facility] Other Interventions: Discharge Summary Assessment (RN) Last Done: 11/14/20 16:41
--- NOTE | 2020-11-14 22:26 | Emergency Department Note ---
ED Visit Note Patient was seen and evaluated at the bedside w/ Travis Reed PA-C. Please see their note for history, physical, details, and disposition. Patient did present with concern for AML did have an elevated white blood cell count. The patient was admitted to [facility] service. . : AML (acute myeloblastic leukemia) Qualifiers: Leukemia Active/Remission status: without remission Qualified Code(s): C92.00 - Acute myeloblastic leukemia, not having achieved remission
--- NOTE | 2020-11-15 06:06 | Electrocardiogram Report ---
Test Reason : Blood Pressure : / mmHG Vent. Rate : 094 BPM Atrial Rate : 094 BPM P-R Int : 182 ms QRS Dur : 090 ms QT Int : 364 ms P-R-T Axes : 025 003 038 degrees QTc Int : 455 ms Normal sinus rhythm Normal ECG No previous ECGs available Confirmed by Rubin Morgan ([id number]) on 11/15/2020 6:06:13 AM Referred By: Zeferino Gray Confirmed By:Rubin Morgan
== END 2020-11-14 20:25 | disposition short-term general hospital (02) | DRG 835 ==
LOC: ED 22:19 → 2W 11-14 00:30